=== PATIENT | male | born 1945 | race Caucasian/White ===

== ENCOUNTER → 2020-04-25 | Outpatient (CLI) | payer MEDICARE | LOC: LAB SHORT 08:12 → LAB 08:12 | DX: C44.329 Squamous cell carcinoma of skin of other parts of face (principal); L82.1 Other seborrheic keratosis | CPT/HCPCS: 88305 ==

== ENCOUNTER 2022-03-20 07:59 | Day surgery (SDC) | payer MEDICARE ==
[~2022-03-20] VITALS: Ht 182.9 cm; Wt 76.2 kg
[~2022-03-20 07:59] MED LIST: AMLO5 PO; CYCL10 PO; ITRA100 PO; MELO7.5 PO
--- NOTE | 2022-03-20 08:21 | NUR ---
Ambulatory in Day Surgery. Patient states colon prep results clear. Patient States Post-Procedure ride home has been arranged. Patient confirms NPO status and agrees with scheduled surgery. Lungs clear T/O to Auscultation.
--- NOTE | 2022-03-20 09:05 | NUR ---
03/20/22 0905 Brendan Dobbs HISTORY, CHART, MEDICATIONS AND ALLERGIES REVIEWED BEFORE START OF PROCEDURE. PATIENT CONFIRMS NPO STATUS AND AGREES WITH SCHEDULED PROCEDURE. 3-LEAD EKG REVIEWED WITH PHYSICIAN PRIOR TO START OF PROCEDURE. MONITOR INTACT WITH CONTINUOUS PULSE OXIMETRY,CAPNOGRAPHY, 3-LEAD EKG, INTERMITTENT BP. SUPPLEMENTAL O2 TO BE TITRATED THROUGHOUT PROCEDURE TO MAINTAIN O2 SATURATION ABOVE 90%. PATIENT DETERMINED TO BE ASA APPROPRIATE FOR PROPOFOL SEDATION PRIOR TO START OF PROCEDURE BY DR. WETZEL.
--- NOTE | 2022-03-20 10:31 | NUR ---
Discharge instructions reviewed with patient. Patient verbalizes understanding. Copy given to patient to take home. Discharged via wheelchair to private car for ride home.
== END 2022-03-20 23:10 | disposition home or self-care (01) ==
LOC: ORSCMMR 07:59 → ORD 09:00 → ORSCMMR 23:10
PROVIDERS: Internal Medicine Gastroenterology
PROC: 0DBK8ZX Excision of Ascending Colon, Via Natural or Artificial Opening Endoscopic, Diagnostic (ICD-10-PCS; principal; 2022-03-20 09:00)
DX: Z12.11 Encounter for screening for malignant neoplasm of colon (principal); Z86.010 Personal history of colon polyps; D12.2 Benign neoplasm of ascending colon; I10 Essential (primary) hypertension; Z87.891 Personal history of nicotine dependence; Z79.899 Other long term (current) drug therapy
CPT/HCPCS: 88305; J2704; J7120

== ENCOUNTER 2022-11-30 02:37 | Day surgery (SDC) | payer MEDICARE ==
[2022-11-29 13:27] LABS: Hematocrit 22.9 % (37.0-53.0); Mean Corpuscular HGB 29.7 pg (26.0-34.0); Mean Corpuscular HGB Conc 30.6 g/dL (31.5-36.5); Mean Corpuscular Volume 97 fL (80-100); Mean Platelet Volume 9.7 fL (9.1-12.4); Platelet Count 554 K/mm3 (150-400); RDW Coefficient Variation 20.8 % (11.7-14.2); RDW Standard Deviation 69.9 fL (35.1-46.3); Red Blood Cell Count 2.36 M/mm3 (4.30-5.90); White Blood Cell Count 4.38 K/mm3 (4.00-11.30)
[2022-11-29 14:42] LABS: BAND PERCENT MAN 7 % (0-8); BASOPHILS ABSOLUTE MAN 0.04 K/mm3 (0.00-0.23); BASOPHILS PERCENT MAN 1 % (0-2); EOSINOPHILS ABSOLUTE MAN 0.08 K/mm3 (0.00-0.68); EOSINOPHILS PERCENT MAN 2 % (0-6); LYMPHOCYTES ABSOLUTE MAN 1.27 K/mm3 (0.84-5.20); LYMPHOCYTES PERCENT MAN 29 % (21-46); MONOCYTES PERCENT MAN 0 % (4-13); NEUTROPHILS ABSOLUTE MAN 2.97 K/mm3 (1.96-9.15); SEG NEUTROPHILS PERCENT MAN 61 % (41-73); TOTAL CELLS COUNTED 100
[2022-11-30 08:25] VITALS: BP 153/57
[2022-11-30 09:40] VITALS: BP 138/55
[2022-11-30 10:16] VITALS: BP 141/56
[2022-11-30 11:42] VITALS: BP 140/64
== END 2022-11-30 11:37 | disposition home or self-care (01) ==
LOC: ATC 02:37 → LAB FUT 11-28 17:40 → EDSTATUS 11-28 17:40
PROVIDERS: Internal Medicine Hematology & Oncology
DX: D46.0 Refractory anemia without ring sideroblasts, so stated (principal)
CPT/HCPCS: 36415; 85025; 86850; 86900; 86901; 86920; J7050; P9016

== ENCOUNTER 2022-12-26 03:16 | Day surgery (SDC) | payer MEDICARE ==
[2022-12-23 14:48] LABS: Hemoglobin 7.1 g/dL (13.5-17.5); Mean Corpuscular HGB 29.8 pg (26.0-34.0); Mean Corpuscular HGB Conc 30.9 g/dL (31.5-36.5); Mean Corpuscular Volume 97 fL (80-100); Mean Platelet Volume 10.5 fL (9.1-12.4); NRBC ABSOLUTE 0.02 K/mm3 (0.00-0.02); NRBC Auto 0.4 /100 WBC (0.0-0.2); Platelet Count 377 K/mm3 (150-400); RDW Coefficient Variation 21.7 % (11.7-14.2); RDW Standard Deviation 70.4 fL (35.1-46.3); Red Blood Cell Count 2.38 M/mm3 (4.30-5.90)
[2022-12-23 15:21] LABS: BAND PERCENT MAN 27 % (0-8); BASOPHILS ABSOLUTE MAN 0.11 K/mm3 (0.00-0.23); BASOPHILS PERCENT MAN 2 % (0-2); EOSINOPHILS ABSOLUTE MAN 0.22 K/mm3 (0.00-0.68); EOSINOPHILS PERCENT MAN 4 % (0-6); LYMPHOCYTES PERCENT MAN 20 % (21-46); METAMYELOCYTE ABSOLUTE MAN 0.05 K/mm3 (0.00-0.00); METAMYELOCYTE PERCENT MAN 1 % (0-0); MONOCYTES ABSOLUTE MAN 0.05 K/mm3 (0.16-1.47); MONOCYTES PERCENT MAN 1 % (4-13); MYELOCYTE ABSOLUTE MAN 0.22 K/mm3 (0.00-0.00); MYELOCYTE PERCENT MAN 4 % (0-0); NEUTROPHILS ABSOLUTE MAN 3.74 K/mm3 (1.96-9.15); SEG NEUTROPHILS PERCENT MAN 41 % (41-73); TOTAL CELLS COUNTED 100
[2022-12-26 08:17] VITALS: BP 127/57
[2022-12-26 09:31] VITALS: BP 127/53
[2022-12-26 09:56] VITALS: BP 133/62
[2022-12-26 10:55] VITALS: BP 146/62
[2022-12-26 11:27] VITALS: BP 144/59
== END 2022-12-26 11:30 | disposition home or self-care (01) ==
LOC: ATC 03:16 → EDSTATUS 07:30 → ATC 07:30
PROVIDERS: Internal Medicine Hematology & Oncology
DX: D64.9 Anemia, unspecified (principal)
CPT/HCPCS: 36415; 36430; 85025; 86850; 86900; 86901; 86923; J7050; P9016

== ENCOUNTER 2023-01-21 02:09 | Day surgery (SDC) | payer MEDICARE ==
[2023-01-20 13:02] LABS: Hematocrit 19.7 % (37.0-53.0); Mean Corpuscular HGB 29.1 pg (26.0-34.0); Mean Corpuscular HGB Conc 30.5 g/dL (31.5-36.5); Mean Corpuscular Volume 96 fL (80-100); Mean Platelet Volume 10.1 fL (9.1-12.4); Platelet Count 367 K/mm3 (150-400); RDW Coefficient Variation 18.7 % (11.7-14.2); RDW Standard Deviation 60.4 fL (35.1-46.3); Red Blood Cell Count 2.06 M/mm3 (4.30-5.90); White Blood Cell Count 4.31 K/mm3 (4.00-11.30)
[2023-01-20 13:36] LABS: BAND PERCENT MAN 2 % (0-8); BASOPHILS PERCENT MAN 0 % (0-2); EOSINOPHILS ABSOLUTE MAN 0.34 K/mm3 (0.00-0.68); EOSINOPHILS PERCENT MAN 8 % (0-6); LYMPHOCYTES ABSOLUTE MAN 0.68 K/mm3 (0.84-5.20); LYMPHOCYTES PERCENT MAN 16 % (21-46); METAMYELOCYTE ABSOLUTE MAN 0.04 K/mm3 (0.00-0.00); METAMYELOCYTE PERCENT MAN 1 % (0-0); MONOCYTES ABSOLUTE MAN 0.04 K/mm3 (0.16-1.47); MONOCYTES PERCENT MAN 1 % (4-13); MYELOCYTE ABSOLUTE MAN 0.04 K/mm3 (0.00-0.00); MYELOCYTE PERCENT MAN 1 % (0-0); NEUTROPHILS ABSOLUTE MAN 3.14 K/mm3 (1.96-9.15); SEG NEUTROPHILS PERCENT MAN 71 % (41-73); TOTAL CELLS COUNTED 100
[2023-01-21 07:57] VITALS: BP 137/54
[2023-01-21 08:05] VITALS: BP 112/51
[2023-01-21 09:03] VITALS: BP 114/50
[2023-01-21 09:28] VITALS: BP 125/53
[2023-01-21 09:45] VITALS: BP 121/54
[2023-01-21 10:58] VITALS: BP 127/60
== END 2023-01-21 11:10 | disposition home or self-care (01) ==
LOC: ATC 02:09 → EDSTATUS 07:30 → ATC 07:30
PROVIDERS: Internal Medicine Hematology & Oncology
DX: D46.0 Refractory anemia without ring sideroblasts, so stated (principal); Z87.891 Personal history of nicotine dependence
CPT/HCPCS: 36415; 36430; 85025; 86850; 86900; 86901; 86923; J7050; P9016

== ENCOUNTER 2023-02-04 14:00 | Day surgery (SDC) | payer MEDICARE ==
[2023-02-03 12:46] LABS: Hematocrit 22.1 % (37.0-53.0); Hemoglobin 6.9 g/dL (13.5-17.5); Mean Corpuscular HGB 30.1 pg (26.0-34.0); Mean Corpuscular HGB Conc 31.2 g/dL (31.5-36.5); Mean Corpuscular Volume 97 fL (80-100); Mean Platelet Volume 10.2 fL (9.1-12.4); Platelet Count 414 K/mm3 (150-400); RDW Coefficient Variation 17.4 % (11.7-14.2); RDW Standard Deviation 58.1 fL (35.1-46.3); Red Blood Cell Count 2.29 M/mm3 (4.30-5.90); White Blood Cell Count 4.53 K/mm3 (4.00-11.30)
[2023-02-03 14:49] LABS: BAND PERCENT MAN 2 % (0-8); BASOPHILS PERCENT MAN 0 % (0-2); EOSINOPHILS ABSOLUTE MAN 0.36 K/mm3 (0.00-0.68); EOSINOPHILS PERCENT MAN 8 % (0-6); LYMPHOCYTES % ATYPICAL MANUAL 1 % (0-0); LYMPHOCYTES ABSOLUTE MAN 1.35 K/mm3 (0.84-5.20); LYMPHOCYTES PERCENT MAN 29 % (21-46); METAMYELOCYTE ABSOLUTE MAN 0.04 K/mm3 (0.00-0.00); METAMYELOCYTE PERCENT MAN 1 % (0-0); MONOCYTES ABSOLUTE MAN 0.04 K/mm3 (0.16-1.47); MONOCYTES PERCENT MAN 1 % (4-13); MYELOCYTE ABSOLUTE MAN 0.22 K/mm3 (0.00-0.00); MYELOCYTE PERCENT MAN 5 % (0-0); NEUTROPHILS ABSOLUTE MAN 2.49 K/mm3 (1.96-9.15); SEG NEUTROPHILS PERCENT MAN 53 % (41-73); TOTAL CELLS COUNTED 100
[2023-02-04 14:55] VITALS: BP 132/53
[2023-02-04 15:10] VITALS: BP 144/63
[2023-02-04 16:11] VITALS: BP 135/55
[2023-02-04 16:39] VITALS: BP 142/58
[2023-02-04 17:02] VITALS: BP 146/55
[2023-02-04 18:26] VITALS: BP 155/63
== END 2023-02-04 18:25 | disposition home or self-care (01) ==
LOC: ATC 14:00 → EDSTATUS 14:30 → ATC 18:25
PROVIDERS: Internal Medicine Hematology & Oncology
DX: D46.0 Refractory anemia without ring sideroblasts, so stated (principal); Z87.891 Personal history of nicotine dependence
CPT/HCPCS: 36415; 36430; 85025; 86850; 86900; 86901; 86923; J7050; P9016

== ENCOUNTER 2023-02-26 01:09 | Day surgery (SDC) | payer MEDICARE ==
[2023-02-24 10:55] LABS: BASOPHILS ABSOLUTE AUTO 0.01 K/mm3 (0.00-0.23); BASOPHILS PERCENT AUTO 0 % (0-2); EOSINOPHILS ABSOLUTE AUTO 0.09 K/mm3 (0.00-0.68); EOSINOPHILS PERCENT AUTO 2 % (0-6); Hematocrit 20.2 % (37.0-53.0); Hemoglobin 6.3 g/dL (13.5-17.5); IMMATURE GRAN ABSOLUTE AUTO 0.22 K/mm3 (0.00-0.10); IMMATURE GRAN PERCENT AUTO 5 % (0-1); LYMPHOCYTES ABSOLUTE AUTO 1.01 K/mm3 (0.84-5.20); LYMPHOCYTES PERCENT AUTO 24 % (21-46); MONOCYTES ABSOLUTE AUTO 0.25 K/mm3 (0.16-1.47); MONOCYTES PERCENT AUTO 6 % (4-13); Mean Corpuscular HGB 28.5 pg (26.0-34.0); Mean Corpuscular HGB Conc 31.2 g/dL (31.5-36.5); Mean Corpuscular Volume 91 fL (80-100); Mean Platelet Volume 9.9 fL (9.1-12.4); NEUTROPHILS ABSOLUTE AUTO 2.66 K/mm3 (1.96-9.15); NEUTROPHILS PERCENT AUTO 63 % (41-73); Platelet Count 313 K/mm3 (150-400); RDW Coefficient Variation 15.4 % (11.7-14.2); RDW Standard Deviation 50.3 fL (35.1-46.3); Red Blood Cell Count 2.21 M/mm3 (4.30-5.90); White Blood Cell Count 4.24 K/mm3 (4.00-11.30)
[2023-02-26 14:00] VITALS: BP 142/57
[2023-02-26 14:17] VITALS: BP 122/51
[2023-02-26 15:17] VITALS: BP 138/63
[2023-02-26 16:00] VITALS: BP 136/57
[2023-02-26 17:12] VITALS: BP 142/60
== END 2023-02-26 17:20 | disposition home or self-care (01) ==
LOC: ATC 01:09 → EDSTATUS 16:20 → ATC 17:20 → LAB FUT 02-19 16:20 → EDSTATUS 02-19 16:20
PROVIDERS: Internal Medicine Hematology & Oncology
DX: D46.0 Refractory anemia without ring sideroblasts, so stated (principal); D46.9 Myelodysplastic syndrome, unspecified
CPT/HCPCS: 36415; 36430; 85025; 86850; 86900; 86901; 86923; J7050; P9016

== ENCOUNTER 2023-03-26 02:29 | Day surgery (SDC) | payer MEDICARE ==
[2023-03-24 08:46] LABS: BASOPHILS PERCENT AUTO 0 % (0-2); Mean Corpuscular HGB 28.9 pg (26.0-34.0); Mean Corpuscular HGB Conc 31.9 g/dL (31.5-36.5); Mean Corpuscular Volume 91 fL (80-100); Platelet Count 237 K/mm3 (150-400); RDW Coefficient Variation 14.8 % (11.7-14.2); RDW Standard Deviation 48.3 fL (35.1-46.3); White Blood Cell Count 4.75 K/mm3 (4.00-11.30)
[2023-03-24 08:54] LABS: EOSINOPHILS ABSOLUTE AUTO 0.08 K/mm3 (0.00-0.68); EOSINOPHILS PERCENT AUTO 2 % (0-6); Hemoglobin 5.2 g/dL (13.5-17.5); IMMATURE GRAN ABSOLUTE AUTO 0.59 K/mm3 (0.00-0.10); IMMATURE GRAN PERCENT AUTO 12 % (0-1); LYMPHOCYTES ABSOLUTE AUTO 1.16 K/mm3 (0.84-5.20); LYMPHOCYTES PERCENT AUTO 24 % (21-46); MONOCYTES ABSOLUTE AUTO 0.27 K/mm3 (0.16-1.47); MONOCYTES PERCENT AUTO 6 % (4-13); NEUTROPHILS ABSOLUTE AUTO 2.65 K/mm3 (1.96-9.15); NEUTROPHILS PERCENT AUTO 56 % (41-73)
[2023-03-24 08:55] LABS: Hematocrit 16.3 % (37.0-53.0)
[2023-03-26] VITALS (7 sets, daily range): BP systolic 109–138; BP diastolic 42–60
== END 2023-03-26 18:09 | disposition home or self-care (01) ==
LOC: ATC 02:29 → EDSTATUS 13:30 → ATC 13:30
PROVIDERS: Internal Medicine Hematology & Oncology
DX: D46.0 Refractory anemia without ring sideroblasts, so stated (principal)
CPT/HCPCS: 36415; 36430; 85025; 86850; 86900; 86901; 86923; J7050; P9016

== ENCOUNTER 2023-04-08 11:22 | Day surgery (SDC) | payer MEDICARE ==
[2023-04-07 11:11] LABS: Hematocrit 19.5 % (37.0-53.0); Hemoglobin 6.2 g/dL (13.5-17.5); Mean Corpuscular HGB 28.8 pg (26.0-34.0); Mean Corpuscular HGB Conc 31.8 g/dL (31.5-36.5); Mean Corpuscular Volume 91 fL (80-100); Mean Platelet Volume 9.9 fL (9.1-12.4); Platelet Count 152 K/mm3 (150-400); RDW Coefficient Variation 14.6 % (11.7-14.2); RDW Standard Deviation 48.1 fL (35.1-46.3); Red Blood Cell Count 2.15 M/mm3 (4.30-5.90); White Blood Cell Count 5.77 K/mm3 (4.00-11.30)
[2023-04-07 11:42] LABS: BAND PERCENT MAN 4 % (0-8); BASOPHILS PERCENT MAN 0 % (0-2); EOSINOPHILS ABSOLUTE MAN 0.17 K/mm3 (0.00-0.68); EOSINOPHILS PERCENT MAN 3 % (0-6); LYMPHOCYTES % ATYPICAL MANUAL 1 % (0-0); LYMPHOCYTES ABSOLUTE MAN 1.67 K/mm3 (0.84-5.20); LYMPHOCYTES PERCENT MAN 28 % (21-46); METAMYELOCYTE ABSOLUTE MAN 0.51 K/mm3 (0.00-0.00); METAMYELOCYTE PERCENT MAN 9 % (0-0); MONOCYTES ABSOLUTE MAN 0.11 K/mm3 (0.16-1.47); MONOCYTES PERCENT MAN 2 % (4-13); MYELOCYTE ABSOLUTE MAN 0.23 K/mm3 (0.00-0.00); MYELOCYTE PERCENT MAN 4 % (0-0); NEUTROPHILS ABSOLUTE MAN 3.05 K/mm3 (1.96-9.15); SEG NEUTROPHILS PERCENT MAN 49 % (41-73); TOTAL CELLS COUNTED 100
[2023-04-08] VITALS (7 sets, daily range): BP systolic 117–140; BP diastolic 51–60
== END 2023-04-08 17:40 | disposition home or self-care (01) ==
LOC: ATC 11:22 → EDSTATUS 11:46 → ATC 17:40
PROVIDERS: Internal Medicine Hematology & Oncology
DX: D46.0 Refractory anemia without ring sideroblasts, so stated (principal); Z87.81 Personal history of (healed) traumatic fracture
CPT/HCPCS: 36415; 36430; 85025; 86850; 86900; 86901; 86923; J7050; P9016

== ENCOUNTER → 2023-04-16 | Outpatient (CLI) | payer MEDICARE | LOC: LAB 14:26 → LAB SHORT 14:26 | DX: C44.42 Squamous cell carcinoma of skin of scalp and neck (principal) | CPT/HCPCS: 88305 ==

== ENCOUNTER 2023-04-22 01:56 | Day surgery (SDC) | payer MEDICARE ==
[2023-04-21 12:49] LABS: Hematocrit 18.9 % (37.0-53.0); Mean Corpuscular HGB Conc 31.7 g/dL (31.5-36.5); Mean Corpuscular Volume 95 fL (80-100); Mean Platelet Volume 10.4 fL (9.1-12.4); Platelet Count 113 K/mm3 (150-400); RDW Coefficient Variation 15.2 % (11.7-14.2); RDW Standard Deviation 52.4 fL (35.1-46.3); White Blood Cell Count 4.01 K/mm3 (4.00-11.30)
[2023-04-21 13:30] LABS: BAND PERCENT MAN 4 % (0-8); BASOPHILS ABSOLUTE MAN 0.04 K/mm3 (0.00-0.23); BASOPHILS PERCENT MAN 1 % (0-2); EOSINOPHILS ABSOLUTE MAN 0.12 K/mm3 (0.00-0.68); EOSINOPHILS PERCENT MAN 3 % (0-6); LYMPHOCYTES % ATYPICAL MANUAL 2 % (0-0); LYMPHOCYTES ABSOLUTE MAN 1.32 K/mm3 (0.84-5.20); LYMPHOCYTES PERCENT MAN 31 % (21-46); MONOCYTES ABSOLUTE MAN 0.16 K/mm3 (0.16-1.47); MONOCYTES PERCENT MAN 4 % (4-13); MYELOCYTE ABSOLUTE MAN 0.12 K/mm3 (0.00-0.00); MYELOCYTE PERCENT MAN 3 % (0-0); NEUTROPHILS ABSOLUTE MAN 2.24 K/mm3 (1.96-9.15); SEG NEUTROPHILS PERCENT MAN 52 % (41-73); TOTAL CELLS COUNTED 100
[2023-04-22] VITALS (7 sets, daily range): BP systolic 135–154; BP diastolic 58–67
[2023-04-22] MEDS ORDERED: NS 250 ML IV SCH ×2 (07:20→11:05)
== END 2023-04-22 17:12 | disposition home or self-care (01) ==
LOC: ATC 01:56
PROVIDERS: Internal Medicine Hematology & Oncology
DX: D46.0 Refractory anemia without ring sideroblasts, so stated (principal); Z87.891 Personal history of nicotine dependence
CPT/HCPCS: 36415; 36430; 85025; 86850; 86900; 86901; 86923; J7050; P9016

== ENCOUNTER → 2023-06-24 | Outpatient (CLI) | payer MEDICARE | END | disposition home or self-care (01) | LOC: LAB 10:08 → LAB SHORT 10:08 | DX: C44.42 Squamous cell carcinoma of skin of scalp and neck (principal) | CPT/HCPCS: 88305 ==

== ENCOUNTER 2023-07-09 03:10 | Day surgery (SDC) | payer MEDICARE ==
[2023-07-07 14:21] LABS: Hematocrit 22.5 % (37.0-53.0); Hemoglobin 7.1 g/dL (13.5-17.5); Mean Corpuscular HGB 27.1 pg (26.0-34.0); Mean Corpuscular HGB Conc 31.6 g/dL (31.5-36.5); Mean Corpuscular Volume 86 fL (80-100); Mean Platelet Volume 10.8 fL (9.1-12.4); Platelet Count 139 K/mm3 (150-400); RDW Coefficient Variation 16.6 % (11.7-14.2); RDW Standard Deviation 52.3 fL (35.1-46.3); Red Blood Cell Count 2.62 M/mm3 (4.30-5.90)
[2023-07-07 14:45] LABS: BAND PERCENT MAN 4 % (0-8); BASOPHILS PERCENT MAN 0 % (0-2); EOSINOPHILS ABSOLUTE MAN 0.29 K/mm3 (0.00-0.68); EOSINOPHILS PERCENT MAN 3 % (0-6); LYMPHOCYTES % ATYPICAL MANUAL 1 % (0-0); LYMPHOCYTES ABSOLUTE MAN 1.58 K/mm3 (0.84-5.20); LYMPHOCYTES PERCENT MAN 15 % (21-46); METAMYELOCYTE ABSOLUTE MAN 0.19 K/mm3 (0.00-0.00); METAMYELOCYTE PERCENT MAN 2 % (0-0); MONOCYTES ABSOLUTE MAN 0.69 K/mm3 (0.16-1.47); MONOCYTES PERCENT MAN 7 % (4-13); MYELOCYTE ABSOLUTE MAN 0.69 K/mm3 (0.00-0.00); MYELOCYTE PERCENT MAN 7 % (0-0); NEUTROPHILS ABSOLUTE MAN 6.43 K/mm3 (1.96-9.15); SEG NEUTROPHILS PERCENT MAN 61 % (41-73); TOTAL CELLS COUNTED 100
[2023-07-09] MEDS ORDERED: NS 250 ML IV SCH (12:20)
[2023-07-09 13:38] VITALS: BP 134/60
[2023-07-09 13:57] VITALS: BP 131/57
[2023-07-09 14:59] VITALS: BP 143/73
[2023-07-09 15:23] VITALS: BP 155/69
[2023-07-09 15:38] VITALS: BP 140/60
[2023-07-09 17:12] VITALS: BP 159/66
== END 2023-07-09 17:11 | disposition home or self-care (01) ==
LOC: ATC 03:10 → EDSTATUS 13:30 → ATC 13:30
PROVIDERS: Internal Medicine Hematology & Oncology
DX: D46.0 Refractory anemia without ring sideroblasts, so stated (principal); Z87.891 Personal history of nicotine dependence
CPT/HCPCS: 36415; 36430; 85025; 86850; 86900; 86901; 86923; J7050; P9016

== ENCOUNTER 2023-09-03 02:47 | Day surgery (SDC) | payer MEDICARE ==
[2023-09-01 13:19] LABS: Hematocrit 20.8 % (37.0-53.0); Hemoglobin 6.6 g/dL (13.5-17.5); Mean Corpuscular HGB 29.1 pg (26.0-34.0); Mean Corpuscular HGB Conc 31.7 g/dL (31.5-36.5); Mean Corpuscular Volume 92 fL (80-100); Mean Platelet Volume 11.8 fL (9.1-12.4); Platelet Count 109 K/mm3 (150-400); RDW Coefficient Variation 15.3 % (11.7-14.2); RDW Standard Deviation 51.1 fL (35.1-46.3); Red Blood Cell Count 2.27 M/mm3 (4.30-5.90); White Blood Cell Count 11.36 K/mm3 (4.00-11.30)
[2023-09-01 13:43] LABS: BASOPHILS PERCENT MAN 0 % (0-2); MONOCYTES ABSOLUTE MAN 0.45 K/mm3 (0.16-1.47); MONOCYTES PERCENT MAN 4 % (4-13); TOTAL CELLS COUNTED 100
[2023-09-01 13:46] LABS: BAND PERCENT MAN 2 % (0-8); EOSINOPHILS ABSOLUTE MAN 0.34 K/mm3 (0.00-0.68); EOSINOPHILS PERCENT MAN 3 % (0-6); LYMPHOCYTES PERCENT MAN 32 % (21-46); METAMYELOCYTE ABSOLUTE MAN 0.34 K/mm3 (0.00-0.00); METAMYELOCYTE PERCENT MAN 3 % (0-0); MYELOCYTE ABSOLUTE MAN 1.13 K/mm3 (0.00-0.00); MYELOCYTE PERCENT MAN 10 % (0-0); NEUTROPHILS ABSOLUTE MAN 5.45 K/mm3 (1.96-9.15); SEG NEUTROPHILS PERCENT MAN 46 % (41-73)
[2023-09-01 14:25] LABS: LYMPHOCYTES ABSOLUTE MAN 3.63 K/mm3 (0.84-5.20)
[2023-09-03] MEDS ORDERED: NS 250 ML IV SCH (07:00)
[2023-09-03 13:44] VITALS: BP 124/55
[2023-09-03 13:58] VITALS: BP 131/66
[2023-09-03 15:34] VITALS: BP 153/67
[2023-09-03 16:07] VITALS: BP 155/63
[2023-09-03 17:17] VITALS: BP 168/68
== END 2023-09-03 17:25 | disposition home or self-care (01) ==
LOC: ATC 02:47 → EDSTATUS 13:30 → ATC 17:25
PROVIDERS: Internal Medicine Hematology & Oncology
DX: D46.0 Refractory anemia without ring sideroblasts, so stated (principal)
CPT/HCPCS: 36415; 36430; 85025; 86850; 86900; 86901; 86923; J7050; P9016

== ENCOUNTER 2023-09-18 02:47 | Day surgery (SDC) | payer MEDICARE ==
[2023-09-18] MEDS ORDERED: NS 250 ML IV SCH (06:50)
[2023-09-18 13:39] VITALS: BP 140/72
[2023-09-18 13:59] VITALS: BP 133/61
[2023-09-18 15:15] VITALS: BP 147/67
[2023-09-18 15:39] VITALS: BP 161/67
[2023-09-18 16:38] VITALS: BP 173/69
[2023-09-18 17:11] VITALS: BP 171/68
== END 2023-09-18 16:55 | disposition home or self-care (01) ==
LOC: ATC 02:47
DX: D46.0 Refractory anemia without ring sideroblasts, so stated (principal); Z87.891 Personal history of nicotine dependence; Z79.899 Other long term (current) drug therapy
CPT/HCPCS: 36430; 86850; 86900; 86901; 86923; J7050; P9016

== ENCOUNTER 2023-10-01 01:04 | Day surgery (SDC) | payer MEDICARE ==
[2023-09-29 14:16] LABS: Hematocrit 22.3 % (37.0-53.0); Hemoglobin 7.3 g/dL (13.5-17.5); Mean Corpuscular HGB 30.2 pg (26.0-34.0); Mean Corpuscular HGB Conc 32.7 g/dL (31.5-36.5); Mean Corpuscular Volume 92 fL (80-100); Mean Platelet Volume 11.8 fL (9.1-12.4); Platelet Count 94 K/mm3 (150-400); RDW Coefficient Variation 14.6 % (11.7-14.2); RDW Standard Deviation 49.4 fL (35.1-46.3); Red Blood Cell Count 2.42 M/mm3 (4.30-5.90); White Blood Cell Count 10.93 K/mm3 (4.00-11.30)
[2023-09-29 14:49] LABS: BAND PERCENT MAN 20 % (0-8); BASOPHILS PERCENT MAN 0 % (0-2); EOSINOPHILS ABSOLUTE MAN 0.21 K/mm3 (0.00-0.68); EOSINOPHILS PERCENT MAN 2 % (0-6); LYMPHOCYTES ABSOLUTE MAN 1.96 K/mm3 (0.84-5.20); LYMPHOCYTES PERCENT MAN 18 % (21-46); METAMYELOCYTE ABSOLUTE MAN 0.98 K/mm3 (0.00-0.00); METAMYELOCYTE PERCENT MAN 9 % (0-0); MONOCYTES PERCENT MAN 1 % (4-13); MYELOCYTE ABSOLUTE MAN 1.42 K/mm3 (0.00-0.00); MYELOCYTE PERCENT MAN 13 % (0-0); NEUTROPHILS ABSOLUTE MAN 6.23 K/mm3 (1.96-9.15); SEG NEUTROPHILS PERCENT MAN 37 % (41-73); TOTAL CELLS COUNTED 100
[2023-10-01] VITALS (7 sets, daily range): BP systolic 135–169; BP diastolic 66–82
[2023-10-01] MEDS ORDERED: NS 250 ML IV SCH (07:20)
== END 2023-10-01 17:23 | disposition home or self-care (01) ==
LOC: ATC 01:04
PROVIDERS: Internal Medicine Hematology & Oncology
DX: D64.9 Anemia, unspecified (principal)
CPT/HCPCS: 36415; 36430; 85025; 86850; 86900; 86901; 86923; J7050; P9016

== ENCOUNTER 2023-10-29 05:27 | Day surgery (SDC) | payer MEDICARE ==
[2023-10-27 13:32] LABS: Hematocrit 21.4 % (37.0-53.0); Hemoglobin 6.8 g/dL (13.5-17.5); Mean Corpuscular HGB 29.1 pg (26.0-34.0); Mean Corpuscular HGB Conc 31.8 g/dL (31.5-36.5); Mean Corpuscular Volume 92 fL (80-100); Mean Platelet Volume 11.5 fL (9.1-12.4); Platelet Count 81 K/mm3 (150-400); RDW Coefficient Variation 14.6 % (11.7-14.2); RDW Standard Deviation 49.1 fL (35.1-46.3); Red Blood Cell Count 2.34 M/mm3 (4.30-5.90); White Blood Cell Count 13.06 K/mm3 (4.00-11.30)
[2023-10-27 14:15] LABS: BAND PERCENT MAN 5 % (0-8); BASOPHILS ABSOLUTE MAN 0.13 K/mm3 (0.00-0.23); BASOPHILS PERCENT MAN 1 % (0-2); BLASTS PERCENT MAN 2 % (0-0); EOSINOPHILS ABSOLUTE MAN 0.26 K/mm3 (0.00-0.68); EOSINOPHILS PERCENT MAN 2 % (0-6); LYMPHOCYTES ABSOLUTE MAN 1.95 K/mm3 (0.84-5.20); LYMPHOCYTES PERCENT MAN 15 % (21-46); METAMYELOCYTE ABSOLUTE MAN 0.52 K/mm3 (0.00-0.00); METAMYELOCYTE PERCENT MAN 4 % (0-0); MONOCYTES ABSOLUTE MAN 0.91 K/mm3 (0.16-1.47); MONOCYTES PERCENT MAN 7 % (4-13); MYELOCYTE ABSOLUTE MAN 1.56 K/mm3 (0.00-0.00); MYELOCYTE PERCENT MAN 12 % (0-0); NEUTROPHILS ABSOLUTE MAN 7.44 K/mm3 (1.96-9.15); SEG NEUTROPHILS PERCENT MAN 52 % (41-73); TOTAL CELLS COUNTED 100
[2023-10-29] MEDS ORDERED: MethylPREDNISolone Sod Succ 125 MG Vial IV SCH (06:50)
[2023-10-29] MEDS ORDERED: DiphenhydrAMINE HCL 25 MG Cap PO PRN (06:50)
[2023-10-29] MEDS ORDERED: NS 500 ML IV SCH (06:55)
[2023-10-29] MEDS ORDERED: NS 250 ML IV SCH (07:00)
[2023-10-29 07:29] VITALS: BP 136/61
[2023-10-29 07:53] VITALS: BP 141/58
[2023-10-29 08:54] VITALS: BP 144/64
[2023-10-29 09:34] VITALS: BP 147/67
[2023-10-29 09:52] VITALS: BP 160/63
== END 2023-10-29 11:23 | disposition home or self-care (01) ==
LOC: ATC 05:27
PROVIDERS: Internal Medicine Hematology & Oncology
DX: D46.0 Refractory anemia without ring sideroblasts, so stated (principal); Z87.891 Personal history of nicotine dependence; Z79.899 Other long term (current) drug therapy
CPT/HCPCS: 36415; 36430; 85025; 86850; 86900; 86901; 86923; J7050; P9016

== ENCOUNTER 2023-11-13 00:59 | Day surgery (SDC) | payer MEDICARE ==
[2023-11-11 12:54] LABS: Hematocrit 21.7 % (37.0-53.0); Hemoglobin 6.9 g/dL (13.5-17.5); Mean Corpuscular HGB 28.9 pg (26.0-34.0); Mean Corpuscular HGB Conc 31.8 g/dL (31.5-36.5); Mean Corpuscular Volume 91 fL (80-100); Mean Platelet Volume 11.1 fL (9.1-12.4); Platelet Count 93 K/mm3 (150-400); RDW Coefficient Variation 14.7 % (11.7-14.2); RDW Standard Deviation 49.9 fL (35.1-46.3); Red Blood Cell Count 2.39 M/mm3 (4.30-5.90); White Blood Cell Count 14.02 K/mm3 (4.00-11.30)
[2023-11-11 13:21] LABS: BAND PERCENT MAN 19 % (0-8); BASOPHILS PERCENT MAN 0 % (0-2); EOSINOPHILS PERCENT MAN 0 % (0-6); LYMPHOCYTES ABSOLUTE MAN 1.68 K/mm3 (0.84-5.20); LYMPHOCYTES PERCENT MAN 12 % (21-46); METAMYELOCYTE ABSOLUTE MAN 1.26 K/mm3 (0.00-0.00); METAMYELOCYTE PERCENT MAN 9 % (0-0); MONOCYTES ABSOLUTE MAN 0.56 K/mm3 (0.16-1.47); MONOCYTES PERCENT MAN 4 % (4-13); MYELOCYTE ABSOLUTE MAN 0.84 K/mm3 (0.00-0.00); MYELOCYTE PERCENT MAN 6 % (0-0); NEUTROPHILS ABSOLUTE MAN 9.67 K/mm3 (1.96-9.15); SEG NEUTROPHILS PERCENT MAN 50 % (41-73); TOTAL CELLS COUNTED 100
[2023-11-13] VITALS (7 sets, daily range): BP systolic 133–156; BP diastolic 56–64
[2023-11-13] MEDS ORDERED: NS 250 ML IV SCH (12:20)
== END 2023-11-13 16:44 | disposition home or self-care (01) ==
LOC: ATC 00:59
PROVIDERS: Internal Medicine Hematology & Oncology
DX: D46.0 Refractory anemia without ring sideroblasts, so stated (principal); Z87.891 Personal history of nicotine dependence; Z79.899 Other long term (current) drug therapy
CPT/HCPCS: 36415; 36430; 85025; 86850; 86900; 86901; 86923; J7050; P9016

== ENCOUNTER 2023-11-26 01:25 | Day surgery (SDC) | payer MEDICARE ==
[2023-11-24 13:21] LABS: Hematocrit 22.9 % (37.0-53.0); Hemoglobin 7.4 g/dL (13.5-17.5); Mean Corpuscular HGB Conc 32.3 g/dL (31.5-36.5); Mean Corpuscular Volume 93 fL (80-100); Mean Platelet Volume 11.1 fL (9.1-12.4); Platelet Count 88 K/mm3 (150-400); RDW Coefficient Variation 15.4 % (11.7-14.2); RDW Standard Deviation 52.8 fL (35.1-46.3); Red Blood Cell Count 2.47 M/mm3 (4.30-5.90); White Blood Cell Count 17.01 K/mm3 (4.00-11.30)
[2023-11-24 15:22] LABS: BAND PERCENT MAN 6 % (0-8); BASOPHILS PERCENT MAN 0 % (0-2); BLASTS PERCENT MAN 2 % (0-0); EOSINOPHILS ABSOLUTE MAN 0.68 K/mm3 (0.00-0.68); EOSINOPHILS PERCENT MAN 4 % (0-6); LYMPHOCYTES ABSOLUTE MAN 2.04 K/mm3 (0.84-5.20); LYMPHOCYTES PERCENT MAN 12 % (21-46); METAMYELOCYTE ABSOLUTE MAN 0.68 K/mm3 (0.00-0.00); METAMYELOCYTE PERCENT MAN 4 % (0-0); MONOCYTES ABSOLUTE MAN 0.85 K/mm3 (0.16-1.47); MONOCYTES PERCENT MAN 5 % (4-13); MYELOCYTE ABSOLUTE MAN 1.53 K/mm3 (0.00-0.00); MYELOCYTE PERCENT MAN 9 % (0-0); NEUTROPHILS ABSOLUTE MAN 10.88 K/mm3 (1.96-9.15); SEG NEUTROPHILS PERCENT MAN 58 % (41-73); TOTAL CELLS COUNTED 100
[2023-11-26] VITALS (8 sets, daily range): BP systolic 144–165; BP diastolic 58–82
[2023-11-26] MEDS ORDERED: NS 250 ML IV SCH (08:05)
== END 2023-11-26 17:13 | disposition home or self-care (01) ==
LOC: ATC 01:25
PROVIDERS: Internal Medicine Hematology & Oncology
DX: D46.0 Refractory anemia without ring sideroblasts, so stated (principal); Z87.891 Personal history of nicotine dependence
CPT/HCPCS: 36415; 36430; 85025; 86850; 86900; 86901; 86923; J7050; P9016

== ENCOUNTER 2023-12-17 04:37 | Day surgery (SDC) | payer MEDICARE ==
[2023-12-15 13:08] LABS: Hemoglobin 7.1 g/dL (13.5-17.5); Mean Corpuscular HGB 29.2 pg (26.0-34.0); Mean Corpuscular HGB Conc 32.3 g/dL (31.5-36.5); Mean Corpuscular Volume 91 fL (80-100); Mean Platelet Volume 11.3 fL (9.1-12.4); Platelet Count 91 K/mm3 (150-400); RDW Coefficient Variation 15.3 % (11.7-14.2); RDW Standard Deviation 50.5 fL (35.1-46.3); Red Blood Cell Count 2.43 M/mm3 (4.30-5.90); White Blood Cell Count 16.28 K/mm3 (4.00-11.30)
[2023-12-15 15:29] LABS: BAND PERCENT MAN 33 % (0-8); BASOPHILS PERCENT MAN 0 % (0-2); BLASTS PERCENT MAN 4 % (0-0); EOSINOPHILS ABSOLUTE MAN 0.16 K/mm3 (0.00-0.68); EOSINOPHILS PERCENT MAN 1 % (0-6); LYMPHOCYTES PERCENT MAN 16 % (21-46); METAMYELOCYTE ABSOLUTE MAN 0.97 K/mm3 (0.00-0.00); METAMYELOCYTE PERCENT MAN 6 % (0-0); MONOCYTES ABSOLUTE MAN 1.62 K/mm3 (0.16-1.47); MONOCYTES PERCENT MAN 10 % (4-13); MYELOCYTE ABSOLUTE MAN 0.81 K/mm3 (0.00-0.00); MYELOCYTE PERCENT MAN 5 % (0-0); NEUTROPHILS ABSOLUTE MAN 9.44 K/mm3 (1.96-9.15); SEG NEUTROPHILS PERCENT MAN 25 % (41-73); TOTAL CELLS COUNTED 100
[2023-12-17] MEDS ORDERED: NS 250 ML IV SCH (07:20)
[2023-12-17 13:27] VITALS: BP 141/56
[2023-12-17 13:45] VITALS: BP 120/55
[2023-12-17 14:48] VITALS: BP 130/55
[2023-12-17 15:05] VITALS: BP 130/55
[2023-12-17 15:30] VITALS: BP 134/57
== END 2023-12-17 16:55 | disposition home or self-care (01) ==
LOC: ATC 04:37 → EDSTATUS 12-18 13:30 → ATC 12-18 13:30
PROVIDERS: Internal Medicine Hematology & Oncology
DX: D46.0 Refractory anemia without ring sideroblasts, so stated (principal); Z87.891 Personal history of nicotine dependence
CPT/HCPCS: 36415; 36430; 85025; 86850; 86900; 86901; 86923; J7050; P9016

== ENCOUNTER 2024-01-07 04:14 | Day surgery (SDC) | payer MEDICARE ==
[2024-01-05 12:45] LABS: Hematocrit 21.4 % (37.0-53.0); Hemoglobin 6.8 g/dL (13.5-17.5); Mean Corpuscular HGB 28.8 pg (26.0-34.0); Mean Corpuscular HGB Conc 31.8 g/dL (31.5-36.5); Mean Corpuscular Volume 91 fL (80-100); Mean Platelet Volume 10.5 fL (9.1-12.4); NRBC ABSOLUTE 0.02 K/mm3 (0.00-0.02); NRBC Auto 0.1 /100 WBC (0.0-0.2); Platelet Count 95 K/mm3 (150-400); Red Blood Cell Count 2.36 M/mm3 (4.30-5.90); White Blood Cell Count 23.81 K/mm3 (4.00-11.30)
[2024-01-05 13:36] LABS: BAND PERCENT MAN 3 % (0-8); BASOPHILS PERCENT MAN 0 % (0-2); BLASTS PERCENT MAN 2 % (0-0); EOSINOPHILS ABSOLUTE MAN 0.23 K/mm3 (0.00-0.68); EOSINOPHILS PERCENT MAN 1 % (0-6); LYMPHOCYTES ABSOLUTE MAN 2.14 K/mm3 (0.84-5.20); LYMPHOCYTES PERCENT MAN 9 % (21-46); METAMYELOCYTE ABSOLUTE MAN 1.42 K/mm3 (0.00-0.00); METAMYELOCYTE PERCENT MAN 6 % (0-0); MONOCYTES ABSOLUTE MAN 2.14 K/mm3 (0.16-1.47); MONOCYTES PERCENT MAN 9 % (4-13); MYELOCYTE ABSOLUTE MAN 2.61 K/mm3 (0.00-0.00); MYELOCYTE PERCENT MAN 11 % (0-0); NEUTROPHILS ABSOLUTE MAN 14.76 K/mm3 (1.96-9.15); SEG NEUTROPHILS PERCENT MAN 59 % (41-73); TOTAL CELLS COUNTED 100
[2024-01-07] VITALS (7 sets, daily range): BP systolic 121–132; BP diastolic 54–59
[2024-01-07] MEDS ORDERED: NS 250 ML IV SCH (06:55)
== END 2024-01-07 17:20 | disposition home or self-care (01) ==
LOC: ATC 04:14 → EDSTATUS 13:30 → ATC 17:20
PROVIDERS: Internal Medicine Hematology & Oncology
DX: D46.0 Refractory anemia without ring sideroblasts, so stated (principal); Z87.891 Personal history of nicotine dependence
CPT/HCPCS: 36415; 36430; 85025; 86850; 86900; 86901; 86923; J7050; P9016

== ENCOUNTER 2024-01-21 03:19 | Day surgery (SDC) | payer MEDICARE ==
[2024-01-19 10:27] LABS: Hematocrit 21.5 % (37.0-53.0); Hemoglobin 6.9 g/dL (13.5-17.5); Mean Corpuscular HGB 29.5 pg (26.0-34.0); Mean Corpuscular HGB Conc 32.1 g/dL (31.5-36.5); Mean Corpuscular Volume 92 fL (80-100); Mean Platelet Volume 10.7 fL (9.1-12.4); NRBC ABSOLUTE 0.02 K/mm3 (0.00-0.02); NRBC Auto 0.1 /100 WBC (0.0-0.2); Platelet Count 81 K/mm3 (150-400); RDW Coefficient Variation 16.6 % (11.7-14.2); Red Blood Cell Count 2.34 M/mm3 (4.30-5.90); White Blood Cell Count 24.68 K/mm3 (4.00-11.30)
[2024-01-19 10:54] LABS: BAND PERCENT MAN 3 % (0-8); BASOPHILS PERCENT MAN 0 % (0-2); BLASTS PERCENT MAN 1 % (0-0); EOSINOPHILS ABSOLUTE MAN 0.49 K/mm3 (0.00-0.68); EOSINOPHILS PERCENT MAN 2 % (0-6); LYMPHOCYTES PERCENT MAN 15 % (21-46); METAMYELOCYTE ABSOLUTE MAN 1.97 K/mm3 (0.00-0.00); METAMYELOCYTE PERCENT MAN 8 % (0-0); MONOCYTES ABSOLUTE MAN 0.98 K/mm3 (0.16-1.47); MONOCYTES PERCENT MAN 4 % (4-13); MYELOCYTE ABSOLUTE MAN 4.19 K/mm3 (0.00-0.00); MYELOCYTE PERCENT MAN 17 % (0-0); NEUTROPHILS ABSOLUTE MAN 13.08 K/mm3 (1.96-9.15); SEG NEUTROPHILS PERCENT MAN 50 % (41-73); TOTAL CELLS COUNTED 100
[2024-01-21] VITALS (8 sets, daily range): BP systolic 113–144; BP diastolic 47–62
[2024-01-21] MEDS ORDERED: NS 250 ML IV SCH (07:05)
== END 2024-01-21 17:22 | disposition home or self-care (01) ==
LOC: ATC 03:19
PROVIDERS: Internal Medicine Hematology & Oncology
DX: D46.0 Refractory anemia without ring sideroblasts, so stated (principal); Z87.891 Personal history of nicotine dependence
CPT/HCPCS: 36415; 85025; 86850; 86900; 86901; 86923; J7050; P9016

== ENCOUNTER 2024-02-09 07:26 | Day surgery (SDC) | payer MEDICARE ==
[2024-02-06 10:00] LABS: Hematocrit 20.4 % (37.0-53.0); Hemoglobin 6.6 g/dL (13.5-17.5); Mean Corpuscular HGB 28.7 pg (26.0-34.0); Mean Corpuscular HGB Conc 32.4 g/dL (31.5-36.5); Mean Corpuscular Volume 89 fL (80-100); Mean Platelet Volume 11.4 fL (9.1-12.4); NRBC ABSOLUTE 0.07 K/mm3 (0.00-0.02); NRBC Auto 0.2 /100 WBC (0.0-0.2); Platelet Count 91 K/mm3 (150-400); RDW Coefficient Variation 16.4 % (11.7-14.2); RDW Standard Deviation 53.7 fL (35.1-46.3)
[2024-02-06 10:28] LABS: BAND PERCENT MAN 4 % (0-8); BASOPHILS PERCENT MAN 0 % (0-2); BLASTS PERCENT MAN 1 % (0-0); EOSINOPHILS PERCENT MAN 0 % (0-6); LYMPHOCYTES ABSOLUTE MAN 4.21 K/mm3 (0.84-5.20); LYMPHOCYTES PERCENT MAN 15 % (21-46); METAMYELOCYTE ABSOLUTE MAN 1.96 K/mm3 (0.00-0.00); METAMYELOCYTE PERCENT MAN 7 % (0-0); MONOCYTES PERCENT MAN 0 % (4-13); MYELOCYTE ABSOLUTE MAN 2.24 K/mm3 (0.00-0.00); MYELOCYTE PERCENT MAN 8 % (0-0); PROMYELOCYTE ABSOLUTE MAN 0.28 K/mm3 (0.00-0.00); PROMYELOCYTE PERCENT MAN 1 % (0-0); SEG NEUTROPHILS PERCENT MAN 64 % (41-73); TOTAL CELLS COUNTED 100
[2024-02-06 10:48] LABS: Albumin, Blood 3.2 g/dL (3.4-5.0); Albumin/Globulin Ratio 0.9 (0.8-1.8); Bilirubin, Total 0.5 mg/dL (0.1-1.0); Bun/Creatinine Ratio 13.9 (12.0-20.0); Calcium, Blood 8.3 mg/dL (8.5-10.1); Creatinine, Blood 1.66 mg/dL (0.60-1.20); Globulin, Blood 3.5 g/dL (2.2-4.0); Potassium, Blood 4.3 mmol/L (3.5-5.5); Total Protein, Blood 6.7 g/dL (6.4-8.2)
[2024-02-09] MEDS ORDERED: NS 250 ML IV SCH (07:50)
[2024-02-09 08:30] VITALS: BP 148/56
[2024-02-09 08:49] VITALS: BP 112/46
[2024-02-09 09:50] VITALS: BP 118/63
[2024-02-09 10:37] VITALS: BP 114/49
[2024-02-09 11:01] VITALS: BP 112/49
== END 2024-02-09 12:47 | disposition home or self-care (01) ==
LOC: EDSTATUS 07:26 → ATC 07:26
PROVIDERS: Internal Medicine Hematology & Oncology
DX: D46.0 Refractory anemia without ring sideroblasts, so stated (principal)
CPT/HCPCS: 36415; 36430; 80053; 85025; 86850; 86900; 86901; 86923; J7050; P9016

== ENCOUNTER 2024-02-10 06:28 | Day surgery (SDC) | payer MEDICARE ==
[2024-02-10] VITALS (17 sets, daily range): BP systolic 128–159; BP diastolic 55–70
[~2024-02-10] VITALS: Ht 182.9 cm; Wt 75.4 kg
[~2024-02-10 06:28] MED LIST changes: +CeFAZolin Sodium 2,000 MG in NS 100 ML IV SCH; +Lactated Ringer's 1,000 ML IV SCH
[2024-02-10] MEDS ORDERED: propofoL 20 ML IV ONE (06:40)
[2024-02-10] MEDS ORDERED: FentaNYL Citrate 50 MCG/ML 2 ML Injection ONE ×2 (06:41→10:25)
[2024-02-10] MEDS ORDERED: Bupivacaine 0.5% HCl 5 MG/ML 30MLVIAL ONE (07:04)
--- NOTE | 2024-02-10 07:13 | NUR ---
History, Chart, Medications and Allergies reviewed before start of procedure. Pre-Op teaching done. Pt verbalizes understanding. Patient confirms NPO status and agrees with scheduled surgery. PT BELONGINGS BAG PLACED UNDER GURNEY. PT GAVE GLASSES TO AT BS.
[2024-02-10] MEDS ORDERED: Dexamethasone Sod Phos 10 MG/ML 1ML VIAL ONE (07:31)
[2024-02-10] MEDS ORDERED: Ondansetron HCl 2 MG / ML 2ML Vial ONE (07:31)
[2024-02-10] MEDS ORDERED: Rocuronium Bromide 10 MG/ML 5ML Injection IV ONE (09:08)
[2024-02-10] MEDS ORDERED: Ketorolac Tromethamine 30mg Vial ONE (09:17)
[2024-02-10] MEDS ORDERED: Sugammadex Sodium 200 MG/2ML SDV (100 MG/ML) ONE (09:17)
[2024-02-10] MEDS ORDERED: OxyCODONE 5 mg/Acetamin 325 mg TABLET PO PRN (09:50)
--- NOTE | 2024-02-10 10:37 | NUR ---
PT TO DAY SURGERY STEP DOWN FROM PACU WITH HERNIA REPAIR; BEDSIDE REPORT RECEIVED. PT IS SLEEPY, RECENTLY RECEIVED PAIN MEDICATION. PT IS ON 2L 02 VIA NC. PT HAS 3 ABD INCISION SITES THAT ARE CLOSED WITH EXOFIN THEY ARE DRY AND INTACT WITH OLD BLOOD.
--- NOTE | 2024-02-10 10:48 | NUR ---
PT AT BEDSIDE. PT STILL SLEEPING. PT INCISIONS REMAIN UNCHANGED
--- NOTE | 2024-02-10 11:26 | NUR ---
PT WOKE UP BRIEFLY, SIP OF WATER GIVEN. ICE PACK TO ABD. PT BACK TO SLEEP.
--- NOTE | 2024-02-10 12:34 | NUR ---
Pt more awake, taking small bites of crackers and sips of water.
--- NOTE | 2024-02-10 13:48 | NUR ---
Discharge instructions reviewed with patient. Patient verbalizes understanding. Copy given to patient to take home. Patient States Post-Procedure ride home has been arranged.
--- NOTE | 2024-02-10 14:10 | NUR ---
Patient up to Ambulate independently. Gait steady. Discharged via wheelchair to private car for ride home.
== END 2024-02-10 14:12 | disposition home or self-care (01) ==
LOC: ORSCMMR 06:28 → ORD 07:30 → ORSCMMR 07:30
PROVIDERS: Surgery
PROC: 0YUA4JZ Supplement Bilateral Inguinal Region with Synthetic Substitute, Percutaneous Endoscopic Approach (ICD-10-PCS; principal; 2024-02-10 07:30)
PROC: 8E0W4CZ Robotic Assisted Procedure of Trunk Region, Percutaneous Endoscopic Approach (ICD-10-PCS; principal; 2024-02-10 07:30)
DX: K40.01 Bilateral inguinal hernia, with obstruction, without gangrene, recurrent (principal); K41.00 Bilateral femoral hernia, with obstruction, without gangrene, not specified as recurrent; J44.9 Chronic obstructive pulmonary disease, unspecified; I10 Essential (primary) hypertension; E78.5 Hyperlipidemia, unspecified; D46.9 Myelodysplastic syndrome, unspecified; D75.839 Thrombocytosis, unspecified; Z79.899 Other long term (current) drug therapy; Z87.891 Personal history of nicotine dependence
CPT/HCPCS: A9270; C1781; J0690; J1100; J1885; J2405; J2704; J3010; J7120

== ENCOUNTER 2024-02-24 04:58 | Day surgery (SDC) | payer MEDICARE ==
[2024-02-23 12:05] LABS: Hemoglobin 6.3 g/dL (13.5-17.5); Mean Corpuscular HGB 29.6 pg (26.0-34.0); Mean Corpuscular HGB Conc 33.2 g/dL (31.5-36.5); Mean Corpuscular Volume 89 fL (80-100); Mean Platelet Volume 11.1 fL (9.1-12.4); NRBC Auto 0.3 /100 WBC (0.0-0.2); Platelet Count 108 K/mm3 (150-400); RDW Coefficient Variation 16.1 % (11.7-14.2); Red Blood Cell Count 2.13 M/mm3 (4.30-5.90)
[2024-02-23 12:14] LABS: White Blood Cell Count 59.38 K/mm3 (4.00-11.30)
[2024-02-23 12:27] LABS: Albumin, Blood 3.4 g/dL (3.4-5.0); Bilirubin, Total 0.4 mg/dL (0.1-1.0); Bun/Creatinine Ratio 18.4 (12.0-20.0); Calcium, Blood 8.8 mg/dL (8.5-10.1); Creatinine, Blood 1.63 mg/dL (0.60-1.20); Globulin, Blood 3.3 g/dL (2.2-4.0); Potassium, Blood 4.4 mmol/L (3.5-5.5); Total Protein, Blood 6.7 g/dL (6.4-8.2)
[2024-02-23 12:43] LABS: BAND PERCENT MAN 11 % (0-8); BASOPHILS PERCENT MAN 0 % (0-2); BLASTS PERCENT MAN 2 % (0-0); EOSINOPHILS PERCENT MAN 0 % (0-6); LYMPHOCYTES ABSOLUTE MAN 3.56 K/mm3 (0.84-5.20); LYMPHOCYTES PERCENT MAN 6 % (21-46); METAMYELOCYTE ABSOLUTE MAN 3.56 K/mm3 (0.00-0.00); METAMYELOCYTE PERCENT MAN 6 % (0-0); MONOCYTES ABSOLUTE MAN 1.78 K/mm3 (0.16-1.47); MONOCYTES PERCENT MAN 3 % (4-13); MYELOCYTE PERCENT MAN 15 % (0-0); NEUTROPHILS ABSOLUTE MAN 40.37 K/mm3 (1.96-9.15); SEG NEUTROPHILS PERCENT MAN 57 % (41-73); TOTAL CELLS COUNTED 100
[2024-02-24] VITALS (7 sets, daily range): BP systolic 113–140; BP diastolic 42–65
[~2024-02-24 04:58] MED LIST changes: -CeFAZolin Sodium 2,000 MG in NS 100 ML IV SCH; -Lactated Ringer's 1,000 ML IV SCH
[2024-02-24] MEDS ORDERED: NS 250 ML IV SCH (07:00)
== END 2024-02-24 17:15 | disposition home or self-care (01) ==
LOC: ATC 04:58
PROVIDERS: Internal Medicine Hematology & Oncology
DX: D46.0 Refractory anemia without ring sideroblasts, so stated (principal); Z87.891 Personal history of nicotine dependence
CPT/HCPCS: 36415; 36430; 80053; 85025; 86850; 86900; 86901; 86923; J7050; P9016

== ENCOUNTER 2024-03-10 05:28 | Day surgery (SDC) | payer MEDICARE ==
[2024-03-08 13:31] LABS: Hematocrit 19.4 % (37.0-53.0); Hemoglobin 6.2 g/dL (13.5-17.5); Mean Corpuscular HGB 28.6 pg (26.0-34.0); Mean Corpuscular Volume 89 fL (80-100); Mean Platelet Volume 10.6 fL (9.1-12.4); NRBC ABSOLUTE 0.14 K/mm3 (0.00-0.02); NRBC Auto 0.3 /100 WBC (0.0-0.2); Platelet Count 73 K/mm3 (150-400); RDW Coefficient Variation 15.9 % (11.7-14.2); RDW Standard Deviation 51.2 fL (35.1-46.3); Red Blood Cell Count 2.17 M/mm3 (4.30-5.90); White Blood Cell Count 40.57 K/mm3 (4.00-11.30)
[2024-03-08 14:50] LABS: BAND PERCENT MAN 16 % (0-8); BASOPHILS PERCENT MAN 0 % (0-2); BLASTS PERCENT MAN 2 % (0-0); EOSINOPHILS PERCENT MAN 0 % (0-6); LYMPHOCYTES ABSOLUTE MAN 2.43 K/mm3 (0.84-5.20); LYMPHOCYTES PERCENT MAN 6 % (21-46); METAMYELOCYTE ABSOLUTE MAN 4.05 K/mm3 (0.00-0.00); METAMYELOCYTE PERCENT MAN 10 % (0-0); MONOCYTES ABSOLUTE MAN 2.02 K/mm3 (0.16-1.47); MONOCYTES PERCENT MAN 5 % (4-13); MYELOCYTE ABSOLUTE MAN 3.65 K/mm3 (0.00-0.00); MYELOCYTE PERCENT MAN 9 % (0-0); NEUTROPHILS ABSOLUTE MAN 26.77 K/mm3 (1.96-9.15); PROMYELOCYTE ABSOLUTE MAN 0.81 K/mm3 (0.00-0.00); PROMYELOCYTE PERCENT MAN 2 % (0-0); SEG NEUTROPHILS PERCENT MAN 50 % (41-73); TOTAL CELLS COUNTED 100
[2024-03-08 19:44] LABS: Albumin, Blood 3.1 g/dL (3.4-5.0); Albumin/Globulin Ratio 0.9 (0.8-1.8); Bilirubin, Total 0.6 mg/dL (0.1-1.0); Bun/Creatinine Ratio 13.4 (12.0-20.0); Calcium, Blood 8.4 mg/dL (8.5-10.1); Creatinine, Blood 1.57 mg/dL (0.60-1.20); Globulin, Blood 3.5 g/dL (2.2-4.0); Potassium, Blood 4.8 mmol/L (3.5-5.5); Total Protein, Blood 6.6 g/dL (6.4-8.2)
[2024-03-10] VITALS (7 sets, daily range): BP systolic 117–153; BP diastolic 49–68
[2024-03-10] MEDS ORDERED: NS 250 ML IV SCH (07:25)
== END 2024-03-10 16:15 | disposition home or self-care (01) ==
LOC: ATC 05:28 → LAB SO 11-18 08:40 → ATC 02-01 15:25 → LAB SO 02-01 15:25 → EDSTATUS 02-01 15:25
PROVIDERS: Internal Medicine Hematology & Oncology
DX: D46.0 Refractory anemia without ring sideroblasts, so stated (principal); Z87.891 Personal history of nicotine dependence; Z79.899 Other long term (current) drug therapy
CPT/HCPCS: 36415; 36430; 80053; 85025; 86850; 86900; 86901; 86923; J7050; P9016

== ENCOUNTER → 2024-03-17 | Outpatient (CLI) | payer MEDICARE ==
[2024-03-18 15:08] LABS: C DIFFICILE DNA NEGATIVE (Negative)
== END ==
LOC: LAB SHORT 19:00 → LAB 19:00
PROVIDERS: Internal Medicine Hematology & Oncology
DX: D46.0 Refractory anemia without ring sideroblasts, so stated (principal)
CPT/HCPCS: 87493

== ENCOUNTER 2024-03-25 00:35 | Day surgery (SDC) | payer MEDICARE ==
[2024-03-22 14:30] LABS: Hematocrit 21.7 % (37.0-53.0); Mean Corpuscular HGB 29.2 pg (26.0-34.0); Mean Corpuscular HGB Conc 32.3 g/dL (31.5-36.5); Mean Corpuscular Volume 90 fL (80-100); Mean Platelet Volume 11.7 fL (9.1-12.4); NRBC ABSOLUTE 0.31 K/mm3 (0.00-0.02); NRBC Auto 0.5 /100 WBC (0.0-0.2); Platelet Count 82 K/mm3 (150-400); RDW Coefficient Variation 16.3 % (11.7-14.2); RDW Standard Deviation 53.9 fL (35.1-46.3)
[2024-03-22 14:38] LABS: White Blood Cell Count 57.89 K/mm3 (4.00-11.30)
[2024-03-22 15:13] LABS: BAND PERCENT MAN 11 % (0-8); BASOPHILS PERCENT MAN 0 % (0-2); EOSINOPHILS PERCENT MAN 0 % (0-6); LYMPHOCYTES ABSOLUTE MAN 4.63 K/mm3 (0.84-5.20); LYMPHOCYTES PERCENT MAN 8 % (21-46); METAMYELOCYTE ABSOLUTE MAN 8.68 K/mm3 (0.00-0.00); METAMYELOCYTE PERCENT MAN 15 % (0-0); MONOCYTES ABSOLUTE MAN 1.15 K/mm3 (0.16-1.47); MONOCYTES PERCENT MAN 2 % (4-13); MYELOCYTE ABSOLUTE MAN 5.78 K/mm3 (0.00-0.00); MYELOCYTE PERCENT MAN 10 % (0-0); NEUTROPHILS ABSOLUTE MAN 37.62 K/mm3 (1.96-9.15); SEG NEUTROPHILS PERCENT MAN 54 % (41-73); TOTAL CELLS COUNTED 100
[2024-03-25] VITALS (7 sets, daily range): BP systolic 113–140; BP diastolic 54–60
[2024-03-25] MEDS ORDERED: NS 250 ML IV SCH (06:40)
== END 2024-03-25 11:08 | disposition home or self-care (01) ==
LOC: ATC 00:35
PROVIDERS: Internal Medicine Hematology & Oncology
DX: D46.0 Refractory anemia without ring sideroblasts, so stated (principal)
CPT/HCPCS: 36415; 36430; 85025; 86850; 86900; 86901; 86923; J7050; P9016

== ENCOUNTER 2024-04-08 01:18 | Day surgery (SDC) | payer MEDICARE ==
[2024-04-05 15:11] LABS: Hematocrit 22.9 % (37.0-53.0); Hemoglobin 7.4 g/dL (13.5-17.5); Mean Corpuscular HGB 29.6 pg (26.0-34.0); Mean Corpuscular HGB Conc 32.3 g/dL (31.5-36.5); Mean Corpuscular Volume 92 fL (80-100); Mean Platelet Volume 10.8 fL (9.1-12.4); NRBC ABSOLUTE 0.33 K/mm3 (0.00-0.02); NRBC Auto 0.6 /100 WBC (0.0-0.2); Platelet Count 87 K/mm3 (150-400); RDW Coefficient Variation 17.3 % (11.7-14.2); RDW Standard Deviation 58.2 fL (35.1-46.3)
[2024-04-05 15:17] LABS: White Blood Cell Count 59.07 K/mm3 (4.00-11.30)
[2024-04-05 15:41] LABS: BAND PERCENT MAN 11 % (0-8); BASOPHILS PERCENT MAN 0 % (0-2); EOSINOPHILS ABSOLUTE MAN 0.59 K/mm3 (0.00-0.68); EOSINOPHILS PERCENT MAN 1 % (0-6); LYMPHOCYTES ABSOLUTE MAN 4.72 K/mm3 (0.84-5.20); LYMPHOCYTES PERCENT MAN 8 % (21-46); METAMYELOCYTE ABSOLUTE MAN 8.26 K/mm3 (0.00-0.00); METAMYELOCYTE PERCENT MAN 14 % (0-0); MONOCYTES ABSOLUTE MAN 1.77 K/mm3 (0.16-1.47); MONOCYTES PERCENT MAN 3 % (4-13); MYELOCYTE ABSOLUTE MAN 10.63 K/mm3 (0.00-0.00); MYELOCYTE PERCENT MAN 18 % (0-0); NEUTROPHILS ABSOLUTE MAN 32.48 K/mm3 (1.96-9.15); SEG NEUTROPHILS PERCENT MAN 44 % (41-73); TOTAL CELLS COUNTED 100
[2024-04-05 15:42] LABS: BLASTS PERCENT MAN 1 % (0-0)
[2024-04-08] VITALS (7 sets, daily range): BP systolic 116–136; BP diastolic 47–63
[2024-04-08] MEDS ORDERED: NS 250 ML IV SCH (07:00)
== END 2024-04-08 11:32 | disposition home or self-care (01) ==
LOC: ATC 01:18
PROVIDERS: Internal Medicine Hematology & Oncology
DX: D46.0 Refractory anemia without ring sideroblasts, so stated (principal); Z87.891 Personal history of nicotine dependence; Z79.899 Other long term (current) drug therapy
CPT/HCPCS: 36415; 36430; 85025; 86850; 86900; 86901; 86923; P9016

== ENCOUNTER 2024-04-28 00:24 | Day surgery (SDC) | payer MEDICARE ==
[2024-04-26 13:18] LABS: Hematocrit 20.4 % (37.0-53.0); Hemoglobin 6.7 g/dL (13.5-17.5); Mean Corpuscular HGB 29.9 pg (26.0-34.0); Mean Corpuscular HGB Conc 32.8 g/dL (31.5-36.5); Mean Corpuscular Volume 91 fL (80-100); Mean Platelet Volume 12.1 fL (9.1-12.4); NRBC ABSOLUTE 0.59 K/mm3 (0.00-0.02); NRBC Auto 1.2 /100 WBC (0.0-0.2); Platelet Count 69 K/mm3 (150-400); RDW Standard Deviation 57.2 fL (35.1-46.3); Red Blood Cell Count 2.24 M/mm3 (4.30-5.90)
[2024-04-26 13:34] LABS: White Blood Cell Count 51.29 K/mm3 (4.00-11.30)
[2024-04-26 15:44] LABS: BASOPHILS PERCENT MAN 0 % (0-2); TOTAL CELLS COUNTED 100
[2024-04-26 15:47] LABS: BAND PERCENT MAN 4 % (0-8); BLASTS PERCENT MAN 7 % (0-0); EOSINOPHILS ABSOLUTE MAN 0.51 K/mm3 (0.00-0.68); EOSINOPHILS PERCENT MAN 1 % (0-6); LYMPHOCYTES ABSOLUTE MAN 5.64 K/mm3 (0.84-5.20); LYMPHOCYTES PERCENT MAN 11 % (21-46); METAMYELOCYTE ABSOLUTE MAN 2.56 K/mm3 (0.00-0.00); METAMYELOCYTE PERCENT MAN 5 % (0-0); MONOCYTES PERCENT MAN 8 % (4-13); MYELOCYTE ABSOLUTE MAN 14.36 K/mm3 (0.00-0.00); MYELOCYTE PERCENT MAN 28 % (0-0); NEUTROPHILS ABSOLUTE MAN 20.51 K/mm3 (1.96-9.15); SEG NEUTROPHILS PERCENT MAN 36 % (41-73)
[2024-04-28] MEDS ORDERED: NS 250 ML IV SCH (07:10)
[2024-04-28 13:22] VITALS: BP 131/65
[2024-04-28 14:00] VITALS: BP 145/67
[2024-04-28 15:20] VITALS: BP 132/64
[2024-04-28 15:43] VITALS: BP 117/59
== END 2024-04-28 17:09 | disposition home or self-care (01) ==
LOC: ATC 00:24 → EDSTATUS 13:30 → ATC 13:30
PROVIDERS: Internal Medicine Hematology & Oncology
DX: D46.9 Myelodysplastic syndrome, unspecified (principal); D46.0 Refractory anemia without ring sideroblasts, so stated; Z87.891 Personal history of nicotine dependence; Z79.899 Other long term (current) drug therapy
CPT/HCPCS: 36415; 36430; 85025; 86850; 86900; 86901; 86923; J7050; P9016

== ENCOUNTER 2024-05-11 08:39 | Day surgery (SDC) | payer MEDICARE ==
[2024-05-10 14:38] LABS: Hematocrit 22.3 % (37.0-53.0); Hemoglobin 7.2 g/dL (13.5-17.5); Mean Corpuscular HGB 29.4 pg (26.0-34.0); Mean Corpuscular HGB Conc 32.3 g/dL (31.5-36.5); Mean Corpuscular Volume 91 fL (80-100); Mean Platelet Volume 11.6 fL (9.1-12.4); NRBC ABSOLUTE 0.39 K/mm3 (0.00-0.02); NRBC Auto 0.9 /100 WBC (0.0-0.2); Platelet Count 76 K/mm3 (150-400); RDW Coefficient Variation 16.3 % (11.7-14.2); RDW Standard Deviation 54.8 fL (35.1-46.3); Red Blood Cell Count 2.45 M/mm3 (4.30-5.90); White Blood Cell Count 44.04 K/mm3 (4.00-11.30)
[2024-05-10 15:04] LABS: BAND PERCENT MAN 7 % (0-8); BASOPHILS PERCENT MAN 0 % (0-2); BLASTS PERCENT MAN 2 % (0-0); EOSINOPHILS PERCENT MAN 0 % (0-6); LYMPHOCYTES ABSOLUTE MAN 3.96 K/mm3 (0.84-5.20); LYMPHOCYTES PERCENT MAN 9 % (21-46); METAMYELOCYTE ABSOLUTE MAN 3.52 K/mm3 (0.00-0.00); METAMYELOCYTE PERCENT MAN 8 % (0-0); MONOCYTES ABSOLUTE MAN 6.16 K/mm3 (0.16-1.47); MONOCYTES PERCENT MAN 14 % (4-13); MYELOCYTE ABSOLUTE MAN 6.16 K/mm3 (0.00-0.00); MYELOCYTE PERCENT MAN 14 % (0-0); NEUTROPHILS ABSOLUTE MAN 23.34 K/mm3 (1.96-9.15); SEG NEUTROPHILS PERCENT MAN 46 % (41-73); TOTAL CELLS COUNTED 100
[2024-05-11] MEDS ORDERED: NS 250 ML IV SCH (13:10)
[2024-05-11 13:26] VITALS: BP 117/58
[2024-05-11 13:52] VITALS: BP 126/57
[2024-05-11 14:49] VITALS: BP 118/62
[2024-05-11 15:50] VITALS: BP 127/51
== END 2024-05-11 15:50 | disposition home or self-care (01) ==
LOC: ATC 08:39
PROVIDERS: Internal Medicine Hematology & Oncology
DX: D46.0 Refractory anemia without ring sideroblasts, so stated (principal); Z79.899 Other long term (current) drug therapy; Z87.891 Personal history of nicotine dependence
CPT/HCPCS: 36415; 36430; 85025; 86850; 86900; 86901; 86923; J7050; P9016

== ENCOUNTER 2024-05-12 10:12 | Day surgery (SDC) | payer MEDICARE ==
[~2024-05-12] VITALS: Ht 182.9 cm; Wt 70.5 kg
[2024-05-12 10:45] VITALS: BP 145/61
[2024-05-12 10:46] VITALS: BP 139/64
[2024-05-12 11:00] VITALS: BP 129/58
[2024-05-12 11:21] LABS: International Normalized Ratio 1.17; Prothrombin Time Results 12.4 Sec (9.7-11.5)
[2024-05-12 11:33] LABS: Bun/Creatinine Ratio 19.1 (12.0-20.0); Calcium, Blood 8.3 mg/dL (8.5-10.1); Creatinine, Blood 1.83 mg/dL (0.60-1.20); Potassium, Blood 4.1 mmol/L (3.5-5.5)
[2024-05-12] MEDS ORDERED: Heparin Sodium 1000 Units/ML 10ML MDV ONE (11:39)
[2024-05-12] MEDS ORDERED: NS 250 ML IV ONE ×2 (11:39→12:16)
[2024-05-12] MEDS ORDERED: Midazolam HCl 1MG / ML 2ML Vial ONE (12:15)
[2024-05-12] MEDS ORDERED: FentaNYL Citrate 50 MCG/ML 2 ML Injection ONE (12:16)
[2024-05-12] MEDS ORDERED: CeFAZolin Sodium 2,000 MG VIAL ONE (12:29)
[2024-05-12] MEDS ORDERED: NS 50 ML IV ONE (12:30)
--- NOTE | 2024-05-12 13:37 | NUR ---
RETURNED AT PRESENT FROM [employer], SITE INTACT, CONCERN WITH BLEED, NONE NOTED ON DRESSING SITE. VSS, NO ACUTE CONCERNS, WILL MONITOR FOR BLEEDING, AT BEDSIDE, DISCUSS POWER PORT WITH PATIENT AND , NO CONCERNS OTHERWISE.
[2024-05-12 13:45] VITALS: BP 145/58
[2024-05-12 14:00] VITALS: BP 131/61
[2024-05-12 14:15] VITALS: BP 140/56
--- NOTE | 2024-05-12 14:40 | NUR ---
PORT CARE DISCUSSED ALONG WITH DRESSING CARE AND HOW LONG TO COVER, WAITING TO SHOWER AND KEEPING SITE COVERED PER PROVIDER, ADDED TO D/C INSTRUCTIONS WELL, AND DISCUSSED D/C WELL FOLLOW UP AND RESUMING MEDICATIONS, DENIED CONCERNS AT TIME OF D/C. IV REMOVED, CANNULA INTACT. DRESSED, TAKEN BY WHEELCHAIR, LEFT UNIT AT 1430.
== END 2024-05-12 15:22 | disposition home or self-care (01) ==
LOC: MHTC 10:12
PROVIDERS: Student in an Organized Health Care Education/Training Program
DX: D46.9 Myelodysplastic syndrome, unspecified (principal); J44.9 Chronic obstructive pulmonary disease, unspecified; I10 Essential (primary) hypertension; E78.5 Hyperlipidemia, unspecified; Z87.891 Personal history of nicotine dependence; Z79.899 Other long term (current) drug therapy
CPT/HCPCS: 76937; 80048; 85610; 99152; 99153; C1769; C1788; C1894; J0690; J1642; J1644; J2250; J3010; J7050

== ENCOUNTER 2024-05-20 03:42 | Day surgery (SDC) | payer MEDICARE ==
[2024-05-17 12:56] LABS: Hematocrit 22.5 % (37.0-53.0); Hemoglobin 7.2 g/dL (13.5-17.5); Mean Corpuscular Volume 94 fL (80-100); Mean Platelet Volume 11.6 fL (9.1-12.4); NRBC ABSOLUTE 0.28 K/mm3 (0.00-0.02); NRBC Auto 0.7 /100 WBC (0.0-0.2); Platelet Count 64 K/mm3 (150-400); RDW Coefficient Variation 16.9 % (11.7-14.2); RDW Standard Deviation 57.9 fL (35.1-46.3); White Blood Cell Count 38.58 K/mm3 (4.00-11.30)
[2024-05-17 15:52] LABS: BAND PERCENT MAN 12 % (0-8); BASOPHILS PERCENT MAN 0 % (0-2); BLASTS PERCENT MAN 4 % (0-0); EOSINOPHILS ABSOLUTE MAN 0.38 K/mm3 (0.00-0.68); EOSINOPHILS PERCENT MAN 1 % (0-6); LYMPHOCYTES PERCENT MAN 7 % (21-46); METAMYELOCYTE ABSOLUTE MAN 1.15 K/mm3 (0.00-0.00); METAMYELOCYTE PERCENT MAN 3 % (0-0); MONOCYTES ABSOLUTE MAN 5.78 K/mm3 (0.16-1.47); MONOCYTES PERCENT MAN 15 % (4-13); MYELOCYTE ABSOLUTE MAN 8.87 K/mm3 (0.00-0.00); MYELOCYTE PERCENT MAN 23 % (0-0); NEUTROPHILS ABSOLUTE MAN 18.13 K/mm3 (1.96-9.15); SEG NEUTROPHILS PERCENT MAN 35 % (41-73); TOTAL CELLS COUNTED 100
[2024-05-20] MEDS ORDERED: NS 250 ML IV SCH (07:00)
[2024-05-20 14:09] VITALS: BP 130/60
[2024-05-20 14:27] VITALS: BP 113/52
[2024-05-20 15:27] VITALS: BP 118/48
[2024-05-20 15:54] VITALS: BP 118/48
[2024-05-20 17:16] VITALS: BP 116/52
[2024-05-20 18:00] VITALS: BP 131/56
== END 2024-05-20 18:00 | disposition home or self-care (01) ==
LOC: ATC 03:42 → LAB SO 05-04 16:00 → EDSTATUS 05-04 16:00
PROVIDERS: Internal Medicine Hematology & Oncology
DX: D46.0 Refractory anemia without ring sideroblasts, so stated (principal)
CPT/HCPCS: 36415; 36430; 85025; 86850; 86900; 86901; 86923; J1642; J7050; P9016

== ENCOUNTER 2024-06-09 01:28 | Day surgery (SDC) | payer MEDICARE ==
[2024-06-07 14:15] LABS: Hematocrit 21.3 % (37.0-53.0); Mean Corpuscular HGB 30.7 pg (26.0-34.0); Mean Corpuscular HGB Conc 32.9 g/dL (31.5-36.5); Mean Corpuscular Volume 93 fL (80-100); NRBC ABSOLUTE 0.23 K/mm3 (0.00-0.02); NRBC Auto 1.2 /100 WBC (0.0-0.2); RDW Standard Deviation 54.4 fL (35.1-46.3); Red Blood Cell Count 2.28 M/mm3 (4.30-5.90); White Blood Cell Count 18.95 K/mm3 (4.00-11.30)
[2024-06-07 14:22] LABS: Platelet Count 41 K/mm3 (150-400)
[2024-06-07 15:02] LABS: BAND PERCENT MAN 4 % (0-8); BASOPHILS PERCENT MAN 0 % (0-2); EOSINOPHILS ABSOLUTE MAN 0.37 K/mm3 (0.00-0.68); EOSINOPHILS PERCENT MAN 2 % (0-6); LYMPHOCYTES ABSOLUTE MAN 3.03 K/mm3 (0.84-5.20); LYMPHOCYTES PERCENT MAN 16 % (21-46); METAMYELOCYTE ABSOLUTE MAN 0.56 K/mm3 (0.00-0.00); METAMYELOCYTE PERCENT MAN 3 % (0-0); MONOCYTES ABSOLUTE MAN 2.46 K/mm3 (0.16-1.47); MONOCYTES PERCENT MAN 13 % (4-13); NEUTROPHILS ABSOLUTE MAN 8.71 K/mm3 (1.96-9.15); SEG NEUTROPHILS PERCENT MAN 42 % (41-73); TOTAL CELLS COUNTED 100
[2024-06-07 15:03] LABS: BLASTS PERCENT MAN 4 % (0-0); MYELOCYTE ABSOLUTE MAN 3.03 K/mm3 (0.00-0.00); MYELOCYTE PERCENT MAN 16 % (0-0)
[2024-06-09] MEDS ORDERED: NS 250 ML IV SCH (07:00)
[2024-06-09 13:35] VITALS: BP 128/56
[2024-06-09 13:54] VITALS: BP 110/55
[2024-06-09 14:54] VITALS: BP 121/54
[2024-06-09 15:14] VITALS: BP 110/56
[2024-06-09 15:35] VITALS: BP 115/55
[2024-06-09 17:01] VITALS: BP 129/52
== END 2024-06-09 17:04 | disposition home or self-care (01) ==
LOC: ATC 01:28
PROVIDERS: Internal Medicine Hematology & Oncology
DX: D46.0 Refractory anemia without ring sideroblasts, so stated (principal)
CPT/HCPCS: 36415; 36430; 85025; 86850; 86900; 86901; 86923; J1642; J7050; P9016

== ENCOUNTER 2024-06-23 00:45 | Day surgery (SDC) | payer MEDICARE ==
[2024-06-21 12:35] LABS: Hematocrit 21.4 % (37.0-53.0); Hemoglobin 6.7 g/dL (13.5-17.5); Mean Corpuscular HGB 29.6 pg (26.0-34.0); Mean Corpuscular HGB Conc 31.3 g/dL (31.5-36.5); Mean Corpuscular Volume 95 fL (80-100); Mean Platelet Volume 11.1 fL (9.1-12.4); NRBC ABSOLUTE 0.43 K/mm3 (0.00-0.02); NRBC Auto 0.9 /100 WBC (0.0-0.2); Platelet Count 77 K/mm3 (150-400); RDW Coefficient Variation 16.5 % (11.7-14.2); RDW Standard Deviation 56.6 fL (35.1-46.3); Red Blood Cell Count 2.26 M/mm3 (4.30-5.90)
[2024-06-21 12:44] LABS: White Blood Cell Count 50.31 K/mm3 (4.00-11.30)
[2024-06-21 13:03] LABS: BASOPHILS PERCENT MAN 0 % (0-2)
[2024-06-21 13:05] LABS: MYELOCYTE ABSOLUTE MAN 3.52 K/mm3 (0.00-0.00); MYELOCYTE PERCENT MAN 7 % (0-0)
[2024-06-21 13:07] LABS: BAND PERCENT MAN 4 % (0-8); EOSINOPHILS PERCENT MAN 1 % (0-6); LYMPHOCYTES ABSOLUTE MAN 2.51 K/mm3 (0.84-5.20); LYMPHOCYTES PERCENT MAN 5 % (21-46); METAMYELOCYTE ABSOLUTE MAN 13.58 K/mm3 (0.00-0.00); METAMYELOCYTE PERCENT MAN 27 % (0-0); MONOCYTES ABSOLUTE MAN 11.06 K/mm3 (0.16-1.47); MONOCYTES PERCENT MAN 22 % (4-13); NEUTROPHILS ABSOLUTE MAN 19.11 K/mm3 (1.96-9.15); SEG NEUTROPHILS PERCENT MAN 34 % (41-73); TOTAL CELLS COUNTED 100
[2024-06-21 13:20] LABS: BLASTS PERCENT MAN 0 % (0-0)
[2024-06-23] MEDS ORDERED: NS 250 ML IV SCH (06:45)
[2024-06-23 13:29] VITALS: BP 114/49
[2024-06-23 13:49] VITALS: BP 110/51
[2024-06-23 14:56] VITALS: BP 114/53
[2024-06-23 15:30] VITALS: BP 120/54
[2024-06-23 15:50] VITALS: BP 113/51
[2024-06-23 16:50] VITALS: BP 114/56
== END 2024-06-23 17:17 | disposition home or self-care (01) ==
LOC: ATC 00:45 → EDSTATUS 13:30 → ATC 17:17
PROVIDERS: Internal Medicine Hematology & Oncology
DX: D46.0 Refractory anemia without ring sideroblasts, so stated (principal); Z87.891 Personal history of nicotine dependence; Z79.899 Other long term (current) drug therapy
CPT/HCPCS: 36415; 36430; 85025; 86850; 86900; 86901; 86923; J1642; J7050; P9016